=== PATIENT | female | born 1965 | race Caucasian/White ===

== ENCOUNTER 2020-01-03 08:55 | Outpatient (CLI) | payer BC, SELFPAY ==
--- NOTE | ~2020-01-03 | XR_ITS ---
EXAMINATION: XR fl inj hip RT for MR/CT DATE: 01/03/2020 10:23 INDICATION: Labral tear presenting with right hip pain TECHNIQUE: A time-out was performed to verify the patient's name, date of , and procedure to b e performed. The procedure including the risks, benefits, and alternatives was discussed with the pat ient. Risks discussed included bleeding and infection. The patient understood the risks and agreed to proceed. The skin overlying the right hip joint was prepped and draped in usual sterile fashion. A nesthetic was administered with 1% lidocaine subcutaneously. A 22 G needle was advanced under fluoro scopic guidance into the joint. Injection of 0.6 mL of Omnipaque 240 confirmed intra-articular posit ion of the needle. Subsequently, injectate consisting of 12 mL of 2:1:1 mixture of sterile saline:Om nipaque 240:1% lidocaine mixed 200:1 with 529 mg/mL Multihance gadolinium contrast was injected with intermittent fluoroscopic observation. The needle was removed and the entry site was cleaned and dres sed. There were no immediate complications. Fluoroscopy exposure time was 0.1 minutes. The total num jossue of images was 7. FINDINGS: Real-time fluoroscopy demonstrates the needle in the right hip joint. Patient's pain prior to procedure:5/10. Patient's pain following the procedure: 2/10. IMPRESSION: 1. Right hip injection of a dilute gadolinium contrast mixture for subdeltoid and prior arthrogram wh ich will be dictated separately. The contrast mixture included a small amount of lidocaine resulting in decrease in the patient's presenting pain. Reviewed, dictated and finalized at location A. IMPRESSION: 1. Right hip injection of a dilute gadolinium contrast mixture for subdeltoid a nd prior arthrogram which will be dictated separately. The contrast mixture inc luded a small amount of lidocaine resulting in decrease in the patient's presen ting pain.
--- NOTE | ~2020-01-03 | MR_ITS ---
EXAMINATION: MR hip RT w con DATE: 01/03/2020 11:17 INDICATION: Right hip pain. Labral tear. TECHNIQUE: Magnetic resonance (MR) arthrogram of the right hip was performed following intra-articula r gadolinium contrast injection and without intravenous contrast. Details of the hip joint injection have been dictated separately. Sequences included small field of view of the right hip with axial and sagittal T1-weighted FS SE and T2-weighted FS FSE and coronal T1-weighted SE and T2-weighted FS FSE . Additional T1-weighted FGRE images in a radial pattern oriented orthogonal to the acetabular rim we re obtained for evaluation of the labrum. COMPARISON: 08/04/2012 FINDINGS: Bones/labrum/cartilage: Alignment is normal. No fracture, avascular necrosis or pathologic marrow replacing process. There i s mild T2 hyperintense cystic change along the anterior right femoral neck where there appears to be decreased femoral head neck offset which can be seen in the setting of impingement. Mild osteoarthrit is at the right hip with anterosuperior and posterior inferior predominant partial thickness cartilag e loss without degenerative subarticular changes. There is a small shallow cleft consistent with bailey mination at the 10:30-11:30 position of the posterior superior chondro-labral junction which is incre ased slightly in length since the prior study. The remainder of the labrum appears normal. Moderate l ower lumbar facet osteoarthritis. Fluid: No loose bodies are evident synovitis at the contrast opacified right hip joint space. Physiologic am ount fluid at the left hip joint. Relatively symmetric mild increased fluid signal overlying the bila teral greater trochanters consistent with minimal trochanteric bursitis. No other abnormal fluid chase ections. Soft tissues: Normal and symmetric muscle bulk and signal in the pelvis and visualized proximal thighs. The bilater al iliopsoas, gluteal and proximal hamstring tendons are normal. Limited evaluation of visceral organ s of the pelvis is unremarkable. No pathologically enlarged pelvic/inguinal lymphadenopathy. IMPRESSION: 1. Mild right hip osteoarthritis with delaminating tear at the posterior superior chondral labral int erface. Labrum appears otherwise normal. 2. Decreased offset with chronic mild cystic change at the anterosuperior femoral head/neck offset wh ich can be seen with cam-type femoral acetabular impingement. 3. Minimal bilateral trochanteric bursitis. Reviewed, dictated and finalized at location A. IMPRESSION: 1. Mild right hip osteoarthritis with delaminating tear at the posterior superi or chondral labral interface. Labrum appears otherwise normal. 2. Decreased offset with chronic mild cystic change at the anterosuperior femor al head/neck offset which can be seen with cam-type femoral acetabular impingem ent. 3. Minimal bilateral trochanteric bursitis.
== END 2020-01-03 08:56 | disposition home or self-care (01) ==
PROVIDERS: PCP Family Medicine Adolescent Medicine; Visit Provider Orthopaedic Surgery
DX: M17.11 Unilateral primary osteoarthritis, right knee (principal); M70.62 Trochanteric bursitis, left hip; M70.61 Trochanteric bursitis, right hip
CPT/HCPCS: 20610; 73722; 77002; A9577; Q9966

== ENCOUNTER 2021-01-17 10:58 | Outpatient (CLI) | payer BC, SELFPAY ==
--- NOTE | ~2021-01-17 | XR_ITS ---
EXAMINATION: XR thoracic spine 3V EXAM DATE: 01/17/2021 11:43 INDICATION: Initial encounter following injury, with pain of the thoracic and lumbar spine. TECHNIQUE: Frontal and lateral projections of the thoracic spine as well as lateral swimmers projecti on of the upper thoracic spine for interpretation. There is no prior study for comparison. FINDINGS: There are no acute fractures identified. The vertebral bodies are aligned in the AP dime nsion. Vertebral body and disc heights are well-maintained. Paraspinal soft tissue is unremarkable. IMPRESSION: Unremarkable XR thoracic spine 3V exam. Reviewed, dictated and finalized at location A.
--- NOTE | ~2021-01-17 | XR_ITS ---
EXAMINATION: XR lumbar spine 2-3V EXAM DATE: 01/17/2021 11:43 INDICATION: Mid back pain after fall. Initial encounter. TECHNIQUE: Lumber spine frontal, lateral, lateral L5-S1 projections for interpretation. Comparison is made to prior examination from 07/26/2012. FINDINGS: Mild to moderate lower lumbar facet arthropathy. The vertebral bodies are aligned in the A P dimension. Vertebral body and disc heights are well-maintained. There are no acute fractures identi fied. Sacrum, sacroiliac joints, sacral arcuate lines are intact. Paraspinal soft tissue is unremarka ble. IMPRESSION: Mild to moderate lower lumbar facet arthropathy. No acute findings. Reviewed, dictated and finalized at location A. IMPRESSION: Mild to moderate lower lumbar facet arthropathy. No acute findings .
== END 2021-01-17 10:59 ==
PROVIDERS: PCP Family Medicine Adolescent Medicine; Visit Provider Physician Assistant
DX: M54.5 Low back pain (principal); M54.6 Pain in thoracic spine
CPT/HCPCS: 72072; 72100

== ENCOUNTER → 2022-03-21 15:29 | Outpatient (CLI) | payer BC, SELFPAY ==
--- NOTE | ~2022-03-21 | MR_ITS ---
EXAMINATION: MR lumbar spine wo con DATE: 03/21/2022 16:04 INDICATION: Low back pain. TECHNIQUE: Magnetic resonance imaging (MRI) of the lumbar spine was performed without intravenous con trast. Sequences included sagittal T2-weighted FSE, sagittal T2-weighted FS FSE, sagittal T1-weighted FSE, and axial T2-weighted FSE. COMPARISON: Lumbar spine radiographs 01/17/2021 FINDINGS: There is 3 mm anterolisthesis of L4 on L5. Vertebral body heights are normal. There is mild ly decreased disc height at L4-L5. The distal spinal cord signal intensity is normal. The conus medul nakul is at T12-L1. The following disc levels are specifically discussed: L1-L2: The disc does not extend beyond the endplate margin. There is mild bilateral facet joint osteo arthritis. There is no neural foraminal stenosis. There is no central canal stenosis. L2-L3: The disc does not extend beyond the endplate margin. There is mild bilateral facet joint osteo arthritis. There is no neural foraminal stenosis. There is no central canal stenosis. L3-L4: The disc does not extend beyond the endplate margin. There is mild bilateral facet joint osteo arthritis. There is no neural foraminal stenosis. There is no central canal stenosis. L4-L5: The disc is bulging and has an annular fissure. There is severe bilateral facet joint osteoart hritis. There is a 12 x 6 x 7 mm synovial cyst arising from left facet joint with mass effect on the left L5 nerve root in left lateral recess. There is mild bilateral neural foraminal stenosis. There i s moderate central canal stenosis. There is severe stenosis of left lateral recess. L5-S1: The disc does not extend beyond the endplate margin. There is mild bilateral facet joint osteo arthritis. There is no neural foraminal stenosis. There is no central canal stenosis. IMPRESSION: 1. Spondylosis at L4-L5 where a synovial cyst and a bulge exert mass effect on the left L5 nerve root . Reviewed, dictated and finalized at location A. IMPRESSION: 1. Spondylosis at L4-L5 where a synovial cyst and a bulge exert mass effect on the left L5 nerve root.
== END ==
PROVIDERS: PCP Family Medicine Adolescent Medicine; Visit Provider Physician Assistant
DX: R20.2 Paresthesia of skin (principal); M47.896 Other spondylosis, lumbar region
CPT/HCPCS: 72148

== ENCOUNTER 2024-08-05 14:50 | Outpatient (CLI) | payer BC, SELFPAY ==
--- NOTE | ~2024-08-05 | XR_ITS ---
CHEST RADIOGRAPH, PA AND LATERAL CLINICAL HISTORY: folllow up for 3mm nodule in right midlung in 12/05 . COMPARISON: None available TECHNIQUE: PA and lateral views of the chest. FINDINGS The cardiomediastinal silhouette is unremarkable. A 3 x 6 mm nodule is identified within the midportion of the right lung. The remainder of the lungs are clear Loss of the inferior cortex is identified within the posterior second right rib. Remaining visualized osseous structures and soft tissues are otherwise unremarkable. IMPRESSION: Loss of the inferior cortex within the posterior second right rib for which cross-sectional imaging ( noncontrast enhanced CT examination of the chest) is recommended for further evaluation. Reviewed, dictated and finalized at location A. IMPRESSION: Loss of the inferior cortex within the posterior second right rib for which crop supervisor ss-sectional imaging (noncontrast enhanced CT examination of the chest) is kyle mmended for further evaluation.
== END 2024-08-05 14:51 | disposition home or self-care (01) ==
PROVIDERS: PCP Family Medicine Adolescent Medicine; Visit Provider Family Medicine Adolescent Medicine
DX: R91.1 Solitary pulmonary nodule (principal)
CPT/HCPCS: 71046

== ENCOUNTER 2024-08-23 08:10 | Outpatient (CLI) | payer BC, SELFPAY ==
--- NOTE | ~2024-08-23 | CT_ITS ---
EXAMINATION:CT diagnostic chest wo con DATE: 08/23/2024 08:34 INDICATION: Right lung nodule. Right second rib lytic lesion on chest radiograph. TECHNIQUE: Computed tomography (CT) of the chest was performed without intravenous contrast. Automate d exposure control and iterative reconstruction technique were employed. The dose-length product (DLP ) was 176.96 mGy-cm. COMPARISON: None. FINDINGS: There is mild scarring at the lung apices. There is mild atelectasis bilaterally. A calcifi ed right lung nodule and calcified right hilar and mediastinal lymph nodes are consistent with old gr anulomatous disease. There is a pneumatocele in right upper lobe. There is a 12 mm nodule in right mi ddle lobe. No pleural effusion. The heart size is normal. No pericardial effusion. There is a 1.6 cm mass in left hepatic lobe. There are changes of left mastectomy. There is mild thoracic spondylosis. IMPRESSION: 1. 12 mm right middle lobe pulmonary nodule, which may be infection, primary bronchogenic carcinoma, or metastatic disease. Noncontrast low-dose chest CT is recommended in 1-3 months. 2. 1.6 cm liver mass, which may be benign or malignant. Abdomen MRI without and with contrast is kyle mmended. 3. Normal right second rib. Reviewed, dictated and finalized at location A. E TENDER IMPRESSION: 1. 12 mm right middle lobe pulmonary nodule, which may be infection, primary br onchogenic carcinoma, or metastatic disease. Noncontrast low-dose chest CT is r ecommended in 1-3 months. 2. 1.6 cm liver mass, which may be benign or malignant. Abdomen MRI without and with contrast is recommended. 3. Normal right second rib.
== END 2024-08-23 08:11 | disposition home or self-care (01) ==
LOC: GOSHIMG 08:11
PROVIDERS: PCP Family Medicine Adolescent Medicine; Visit Provider Family Medicine Adolescent Medicine
DX: R91.8 Other nonspecific abnormal finding of lung field (principal); R91.1 Solitary pulmonary nodule
CPT/HCPCS: 71250

== ENCOUNTER 2024-09-15 06:33 | Outpatient (CLI) | payer BC, SELFPAY ==
--- NOTE | ~2024-09-15 | MR_ITS ---
EXAMINATION: MR abdomen wo/w con DATE: 09/15/2024 07:22 INDICATION: Hepatomegaly, not elsewhere classified. Liver mass. TECHNIQUE: Magnetic resonance imaging (MRI) of the abdomen was performed without and with 15 mL Multi Fernie intravenous contrast. COMPARISON: Chest CT 08/23/2024 FINDINGS: There is a 13 mm mass in left hepatic lobe with interrupted peripheral puddling of contrast, consiste nt with a hemangioma. There is a 12 mm hyperenhancing mass in right hepatic lobe without washout. The re is a 4 mm hyperenhancing mass in right hepatic lobe. There is a 7 mm hyperenhancing mass right hep atic lobe. The gallbladder is normal in size. The spleen, pancreas, adrenal glands, and left kidney a re normal. There are cysts in right kidney measuring up to 14 mm. There are no dilated loops of bowel . There are no pathologically enlarged lymph nodes. There is no free intraperitoneal fluid. IMPRESSION: 1. 13 mm liver hemangioma correlating with the chest CT other mildly. 2. Three hyperenhancing liver masses measuring up to 12 mm. In the absence of known malignancy or chr onic liver disease, these findings are likely hemangiomas and/or focal nodular hyperplasia. Reviewed, dictated and finalized at location A. HEL KEEPER IMPRESSION: 1. 13 mm liver hemangioma correlating with the chest CT other mildly. 2. Three hyperenhancing liver masses measuring up to 12 mm. In the absence of k nown malignancy or chronic liver disease, these findings are likely hemangiomas and/or focal nodular hyperplasia.
== END 2024-09-15 06:34 | disposition home or self-care (01) ==
PROVIDERS: PCP Family Medicine Adolescent Medicine; Visit Provider Family Medicine Adolescent Medicine
DX: R16.0 Hepatomegaly, not elsewhere classified (principal)
CPT/HCPCS: 74183; A9577

== ENCOUNTER 2024-12-13 08:07 | Outpatient (CLI) | payer BC, SELFPAY | END 2024-12-13 08:08 | disposition home or self-care (01) | PROVIDERS: PCP Family Medicine Adolescent Medicine; Visit Provider Family Medicine Adolescent Medicine | DX: R91.8 Other nonspecific abnormal finding of lung field (principal) | CPT/HCPCS: 71250 ==

== ENCOUNTER 2025-01-10 13:24 | Outpatient (CLI) | payer BC, SELFPAY ==
--- NOTE | ~2025-01-10 | PE_ITS ---
EXAMINATION: PET skull to mid thigh DATE: 01/10/2025 15:27 INDICATION: Lung nodule TECHNIQUE: Blood glucose level was 88 mg/dL. 11.312 mCi of 18-fluorodeoxyglucose (18-FDG) was adminis tered i.v. Low dose computed tomography (CT) images were acquired from the base of the brain to the p roximal thighs for attenuation correction and anatomic localization. Positron emission tomography (PE T) images were acquired in the same distribution beginning 58 minutes after injection. Images includi ng fused PET/CT images were reconstructed in axial, coronal, and sagittal planes. Automated exposure control technique was employed. The dose-length product was 718.87mGy-cm. COMPARISON: Chest CT dated 12/13/2024 and MR dated 09/15/2024 FINDINGS: Head/neck: There is symmetric increased activity in the oral cavity, tonsils, submandibular glands laryngeal mus cles and ocular muscles without CT correlate, likely physiologic. No pathologically enlarged cervical lymphadenopathy or suspicious foci of increased FDG uptake in the visualized head or neck. Chest: Mild emphysema. Calcified right middle lobe nodule and calcified mediastinal lymph nodes consistent w ith old granulomatous disease. 1.4 x 0.9 cm at the posterior medial right middle lobe which without a bnormal FDG uptake with corresponding measurements of 1.5 x 1[address] dated 08/23/2024. No other p ulmonary nodules, pneumonia or pleural effusion. Heart size is normal. No pericardial effusion. Thora cic aorta is normal in caliber. No pathologically enlarged or FDG avid thoracic lymphadenopathy. Stat us post left mastectomy. Abdomen/pelvis/proximal thighs: Physiologic renal accumulation and excretion of FDG activity in the kidneys, bladder and along portio ns of ureters. Normal degree and heterogenous pattern of increased uptake throughout the liver withou t radiologic correlate or dominant FDG avid lesion. No abnormal uptake associated with a low-attenuat ion 1.3 cm hemangioma in segment IVb of the liver with characteristic enhancement pattern evident on prior MRI. The gallbladder, pancreas, spleen and bilateral adrenal glands are normal. Mild uptake sca ttered throughout the bowels without radiologic correlate, also likely physiologic. Normal appendix. Mild increased uptake overlying the bilateral greater trochanters consistent with trochanteric bursit is. No other abnormal foci of increased FDG uptake or pathologically enlarged lymphadenopathy in the abdomen, pelvis or proximal thighs. Musculoskeletal: No suspicious lytic, blastic or abnormally FDG avid bone lesions. IMPRESSION: 1. No FDG activity associated with an unchanged 1.4 x 0.9 cm right middle lobe nodule. While reassuri ng would recommend additional 6 month follow-up low-dose noncontrast chest CT. No other FDG avid lesi ons suspicious for primary malignancy or metastatic disease. Reviewed, dictated and finalized at location A. IMPRESSION: 1. No FDG activity associated with an unchanged 1.4 x 0.9 cm right middle lobe nodule. While reassuring would recommend additional 6 month follow-up low-dose noncontrast chest CT. No other FDG avid lesions suspicious for primary malignan cy or metastatic disease.
[2025-01-10 13:55] LABS: Glucose Point of Care 88 mg/dl (65-105)
--- OUTSIDE RECORDS SUMMARY | 2025-01-10 14:32 | XMS_ITS | Clinical Summary ---
Author Organization [facility] Address [address] [place] [address] Care Team Providers Care Ingredient Scaler Name Role Phone Nasim Dillard MD Primary Care Prov ider Allergies No known active allergies Medications HYDROcodone-alejandro taminophen (NORCO) 5-325 mg per tabletIndicatio ns:Pain 0 8 Active ibuprofen (ADVIL,MOTRIN) 600 mg tablet Take 1 tablet (600 mg total) by mouth as needed 0 8 Active venlafaxine XR (EFFEXOR-XR) 75 mg 24 hr capsule Take 1 capsule (75 mg total) by mouth daily 0 Active fluticasone propionate (FLONASE) 50 mcg/actuation nasal sprayIndication s:Allergic Rhinitis Administer 2 sprays into each nostril daily 18.2 mL 2 3 Active levocetirizine (XYZAL) 5 mg tablet Take 1 tablet (5 mg total) by mouth daily 30 tablet 3 3 Active propranoloL (INDERAL) 40 mg tablet Take 1 tablet (40 mg total) by mouth as needed Active pantoprazole DR (PROTONIX) 40 mg EC tablet Take 1 tablet (40 mg total) by mouth 2 (two) times a day before breakfast and dinner 60 tablet 3 4 Active Active Problems Problem Noted Date Diagnosed Date Laryngopharyngeal reflux (LPR) 02/02/2024 Chronic pansinusitis 02/02/2024 Nasal valve stenosis 06/16/2023 Hypertrophy of both inferior nasal turbinates Deviated nasal septum 06/16/2023 Nasal obstruction 06/16/2023 Trigger finger of right thumb 02/23/2020 Arthritis of carpometacarpal (CMC) joint of righ t thumb 09/29/2019 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 ([facility]) [address] [place], [place] [id number] Discharge Disposition: Discharge to home or self care from Last 3 Months Immunizations Immunization Administration Dates Next Due Hep B Vaccine 05/20/2016,11/06/2015 Influenza, Quadrivalent, Split, Intramuscular Influenza, Quadrivalent, Spl it, Preservative Free, Intramuscular 09/03/2019 ZOSTER Recombinant 12/29/2018 Surgical History Surgery Date Site/Laterality Comments MASTECTOMY 10/12/2001 - 10/11/2002 Left VEIN LIGATION AND STRIPPING Left greater saphenous removed for varicose vein BREAST RECONSTRUCTION attempted with tissue ship construction teacher and then removed. --> reconstruction failed HAND SURGERY thumb surgery TISSUE HEALTH OCCUPATIONS TEACHER REMOVAL THUMB SURGERY 10/12/2020 - 10/11/2021 Right bone removed from civic joint Medical History Medical History Date Comments Arthritis Heart murmur pt. denies chest pain or palpitations. Anemia no meds Cancer (HCC) 03/2002 Ductal carcinoma in situ (DCIS) left breast-->surgery. Denies chemo or radiation. No recurrence PONV (postoperative nausea and vomiting) Delayed emergence from general anesthesia slow to wake Post-menopausal Osteoarthritis Nasal obstruction Right nostril Nasal fracture x 2 Toxic shock (HCC) History of chemotherapy Family History Medical History Relation Name Comments Hypertension Father Cancer Mother Hypertension Mother Relation Name Status Comments Father Mother Social History Tobacco Use Types Packs/Day Years Used Date Smoking Tobacco: Never Smokeless Tobacco: Never Tobacco Cessation:Counseling Given: No Alcohol Use Standard Drinks/Week Comments Yes 0 (1 standard drink = 0.6 oz pur e alcohol) 1x/month AUDIT-C Answer Date Recorded Q1: How often do you have a drink containing alc ohol? 2-4 times a month 06/16/2023 Q2: How many drinks containi ng alcohol do you have on a typical day when you are drinking? 1 or 2 06/16/2023 Q3: How often do you have si x or more drinks on one occasion? 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 Not on file Not on file Obstetrics History Last Filed Vital Signs Vital Sign Reading Time Taken Comments Blood Pressure 152/91 11/04/2022 10:16 AM HADOOP SOFTWARE ENGINEER Pulse 76 11/04/2022 10:16 AM HADOOP SOFTWARE ENGINEER Temperature 36.7 C (98.1 F) 02/02/2024 9:50 AM CDT Respiratory Rate 20 06/16/2023 3:07 PM CDT Oxygen Saturation 98% 11/30/2019 1:10 PM HADOOP SOFTWARE ENGINEER Inhaled Oxygen Concentration - - Weight 71.7 kg (158 lb) 02/02/2024 9:50 AM CDT Height 172.7 cm (5' 8 ) 02/02/2024 9:50 AM CDT Body Mass Index 24.02 02/02/2024 9:50 AM CDT Plan of Treatment Health Maintenance Due Date Last Done Comments Cervical Cancer Screening 1965 Colon Cancer Screening-Colonoscopy 1963 Depression Screening 1963 Hepatitis C Screening 1963 DTaP/Tdap/Td Vaccine (1 - Tdap) 1974 Regular Well Visit/Exam 18-64 1981 Zoster Vaccine (2 of 2) 02/23/2019 12/29/2018 Influenza Vaccine (#1) 2024 09/03/2019, 2018 Breast Cancer Screening-Mammogram 06/09/2025 06/09/2024, 06/08/2023, 06/05/2022, Additional history exists Hepatitis B Screening Completed 05/20/2016, 016 Pneumococcal vaccine <65 Aged Out No longer eligible based on patient's age to complete this topic Medical Devices Implanted Type Area Documentation Nurse Device Identifier Shelf Expiration Date Model / Serial / Lot [employer] [id number]-8978-[id number] Internalbrace Kit Hand Wrist Set Implant Ligament Augmentation - [id number] Implanted:Qty: 1 on 11/30/2019 by Jamie Alvares MD at [facility] Right: Wrist [employer] 09/10/2024 AR-8978-[id number] / / [id number] Procedures Procedure Name Priority Date/Time Associated Diagnosis Comments CT BODY OUTSIDE REFERENCE Routine 12/26/2024 9:10 AM CDT SCREENING MAMMOGRAM RIGHT W VU UNILATERAL ONLY Schedule Routine, Read Routine (OP Routine) 06/09/2024 10:33 AM CDT Screening mammogram, encounter for from Last 3 Months or Most Recently Relevant to Health Maintenance Results * CT Body Outside Reference (12/26/2024 9:10 AM CDT) Impressions [facility] - 12/26/2024 9:10 AM CDT These images are for Reference purposes only and have not been reviewed by [facility]iology. There will be no report generated by a [facility] Radiologist. Narrative [facility] - 12/26/2024 9:10 AM CDT EXAMINATION: Images For Reference Purposes Only us Nasim Dillard MD IMG CT PROCEDURES Final Result [facility] * Screening Mammogram Right W Vu Unilateral Only (06/09/2024 10:33 AM CDT) Anatomical Region Laterality Modality Breast Right Mammography Narrative 06/10/2024 10:45 AM CDT Mammogram Technique: Right Breast Digital Breast Tomosynthesis, Unilateral C-view 2D Screening mammogram. Views obtained: bilateral craniocaudal and bilateral mediolateral oblique. Computer Aided Detection was performed. Mammogram Findings: The present examination has been compared to prior imaging studies performed at [facility] on 05/30/2021, 06/05/2022 and 06/08/2023. There are scattered areas of fibroglandular density. There is no suspicious abnormality in the right breast. Patient status post contralateral mastectomy for personal history of breast cancer. Impression: There is no mammographic evidence of malignancy. Annual screening mammography is recommended. OVERALL FINAL ASSESSMENT: BI-RADS CATEGORY 1: Negative. Procedure Note Anita Duarte MD - 06/10/2024 Mammogram Technique: Right Breast Digital Breast Tomosynthesis, Unilateral C-view 2DScreening mammogram. Views obtained: bilateral craniocaudal and bilateral mediolateral oblique. Computer Aided Detection was performed. Mammogram Findings: The present examination has been compared to prior imaging studies performed at [facility] on 05/30/2021, 06/05/2022 and 06/08/2023. There are scattered areas of fibroglandular density. There is no suspicious abnormality in the right breast. Patient status post contralateral mastectomy for personal history ofbreast cancer. Impression: There is no mammographic evidence of malignancy. Annual screening mammography is recommended. OVERALL FINAL ASSESSMENT: BI-RADS CATEGORY 1: Negative. us Self Screening Mammogram IMG MAMMO PROCEDURES Fi nal Result from Last 3 Months or Most Recently Relevant to Health Maintenance Insurance [facility] [facility] [address] [address] Advance Directives For more information, please contact: [phone] * Full Code (Latest Code Status on File) Date Activated Date Inactivated Comments 11/30/2019 11:52 AM 11/30/2019 5:26 PM Care Teams Ingredient Scaler Relationship Specialty Start Date End Date Nasim Dillard MD [address] [place] [address] PCP - General 02/26/17
--- OUTSIDE RECORDS SUMMARY | 2025-01-10 14:32 | XMS_ITS | Clinical Summary ---
Author Organization [facility] Address [address] [place] [address] Care Team Providers Care Animal Control Specialist Name Role Phone None, Provider MD Primary Care Provider Unavaila ble Medications HYDROcodone-alejandro taminophen (NORCO) 5-325 MG tablet TAKE 1 TO 1 & 1/2 (ONE TO ONE & ONE-HALF) TABLETS BY MOUTH EVERY 4 HOURS NEEDED FOR PAIN 09/29/2023 Active ibuprofen (MOTRIN) 600 MG tablet Take 1 tablet (600 mg total) by mouth 3 (three) times daily. 04/27/2023 Active propranolol (INDERAL) 40 MG tablet TAKE 1 & 1/2 (ONE & ONE-HALF) TABLETS BY MOUTH EVERY 12 HOURS NEEDED FOR TREMORS Active traZODone (DESYREL) 50 MG tablet take 1 tablet by mouth every day at bedtime as needed for insomnia 10/25/2023 Active venlafaxine XR (EFFEXOR-XR) 75 MG 24 hr capsule Take 1 capsule (75 mg total) by mouth daily. 11/11/2023 Active famotidine (PEPCID) 20 MG tabletIndicatio ns:Bronchitis Take 1 tablet (20 mg total) by mouth 2 (two) times daily. 60 tablet 11/19/2023 Active methylPREDNISol one, FRANKO, (MEDROL DOSEPAK) 4 MG tabletIndicatio ns:Bronchitis 6 TABLETS ON DAY ONE, 5 TABLETS DAY TWO, 4 TABLETS DAY THREE, 3 TABLETS DAY FOUR, 2 TABLETS DAY FIVE, AND 1 TABLET DAY SIX 1 each 11/19/2023 Active Active Problems No known active problems Social History Tobacco Use Types Packs/Day Years Used Date Smoking Tobacco: Never Smokeless Tobacco: Never Tobacco Cessation:Counseling Given: No Alcohol Use Standard Drinks/Week Comments Not Currently 0 (1 standard drink = 0.6 oz pur e alcohol) PHQ-2 Answer Date Recorded Patient Health Questionnaire-2 Score 0 11/19/2023 Comments Unknown Sex and Gender Information Value Date Recorded Sex Assigned at Not on file Legal Sex Female 8:10 PM CDT Gender Identity Not on file Sexual Orientation Not on file Last Filed Vital Signs Vital Sign Reading Time Taken Comments Blood Pressure 152/86 11/19/2023 10:59 AM FRUIT FARMER Pulse 86 11/19/2023 11:03 AM FRUIT FARMER Temperature 37.1 C (98.8 F) 11/19/2023 10:53 AM FRUIT FARMER Respiratory Rate 18 11/19/2023 10:53 AM FRUIT FARMER Oxygen Saturation 99% 11/19/2023 10:53 AM FRUIT FARMER Inhaled Oxygen Concentration - - Weight 74.8 kg (165 lb) 11/19/2023 10:53 AM FRUIT FARMER Height 172.7 cm (5' 8 ) 11/19/2023 10:53 AM FRUIT FARMER Body Mass Index 25.09 11/19/2023 10:53 AM FRUIT FARMER Plan of Treatment Health Maintenance Due Date Last Done Comments Cervical Cancer Screening Pa p Smear (Age 30 to 64) Every 3 Years 1963 Colorectal Cancer Screening Colonoscopy (10 Years) 1963 Annual Physical 1966 Hepatitis C 1981 DTaP, Tdap and Td Vaccines ( 1 - Tdap) 1982 Cervical Cancer Screening Pa p with HPV Testing (Age 30 to 64) Every 5 Years 1993 Cervical Cancer Screening with HPV 1993 Mammogram Screening 2003 Zoster Vaccines (2 of 2) 02/23/2019 12/29/2018 COVID-19 Vaccine ( - 2023-2 5 season) 2024 PHQ-2 (Physician Pauma) 10/12/2024 11/19/2023 RSV Immunization or 60+ Years (1 - 1-dose 75+ series) 2038 Meningococcal B Vaccine Aged Out No l onger eligible based on patient's age to complete this topic Meningococcal Vaccine Aged Out No vanessa leann eligible based on patient's age to complete this topic Pneumococcal Vaccine: Pediat rics (0 to 5 Years) and At-Risk Patients (6 to 64 Years) Aged Out No longer eligi ble based on patient's age to complete this topic RSV Immunizations Under 20 Months Aged Out No longer eligible based on patient's age to complete this topic Insurance Care Teams Animal Control Specialist Relationship Specialty Start Date End Date None, Provider, PCP - General 01/14/21
--- OUTSIDE RECORDS SUMMARY | 2025-01-10 14:32 | XMS_ITS | Referral Summary ---
Author Organization [facility] Address [address] [place] [address] Care Team Providers Care Front Line Supervisor Name Role Phone Nasim Dillard MD Primary Care Prov ider Encounters Date Type Department Care Team Description 12/26/2024 9:10 AM CDT - 12/26/2024 11:59 PM CDT Hospital Encounter [facility] [address] [place] [id number] Discharge Disposition: Discharge to home or self care from Last 3 Months Allergies No known active allergies Medications HYDROcodone-alejandro [...] of wrist 2014 Right hip pain 08/25/2012 Immunizations Immunization Administration Dates Next Due Hep B Vaccine 05/20/2016,11/06/2015 Influenza, Quadrivalent, Split, Intramuscular Influenza, Quadrivalent, Spl it, Preservative Free, Intramuscular 09/03/2019 ZOSTER Recombinant 12/29/2018 Social History Tobacco Use Types Packs/Day Years [...] on file Legal Sex Female 3:31 AM FIBERGLASS TUBE MOLDER Gender Identity Not on file Sexual Orientation Straight 12/23/2019 8: 36 AM CDT 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 Not on file Not on file Not on file Last Filed Vital Signs Vital Sign Reading Time Taken Comments Blood Pressure 152/91 11/04/2022 10:16 AM FIBERGLASS TUBE MOLDER Pulse 76 11/04/2022 10:16 AM FIBERGLASS TUBE MOLDER Temperature 36.7 C (98.1 F) 02/02/2024 9:50 AM CDT Respiratory Rate 20 06/16/2023 3:07 PM CDT Oxygen Saturation 98% 11/30/2019 1:10 PM FIBERGLASS TUBE MOLDER Inhaled Oxygen Concentration - - Weight 71.7 kg (158 lb) 02/02/2024 9:50 AM CDT Height 172.7 cm (5' 8 ) 02/02/2024 9:50 AM CDT Body Mass Index 24.02 02/02/2024 9:50 AM CDT Plan of Treatment Not on file Medical Devices Implanted Type Area Library Supervisor Device Identifier Shelf Expiration Date Model / Serial / Lot [employer] [id number] Internalbrace Kit Hand Wrist Set Implant Ligament Augmentation - [id number] Implanted:Qty: 1 on 11/30/2019 by Jamie Alvares MD at [facility] Right: Wrist [employer] 09/10/2024 [id number] / / [id number] Procedures Procedure Name Priority Date/Time Associated Diagnosis Comments CT BODY OUTSIDE REFERENCE Routine 12/26/2024 9:10 AM CDT SCREENING MAMMOGRAM RIGHT W VU UNILATERAL ONLY Schedule Routine, Read Routine (OP Routine) 06/09/2024 10:33 AM CDT Screening mammogram, encounter for from Last 3 Months or Most Recently Relevant to Health Maintenance Results * CT Body Outside Reference (12/26/2024 9:10 AM CDT) Impressions [facility] - 12/26/2024 9:10 AM CDT These images are for Reference purposes only and have not been reviewed by [facility]. There will be no report generated by a [facility] Radiologist. Narrative [facility] - 12/26/2024 9:10 AM [...] compared to prior imaging studies performed at [facility] on 05/30/2021, 06/05/2022 and 06/08/2023. There are [...] compared to prior imaging studies performed at [facility] on 05/30/2021, 06/05/2022 and 06/08/2023. There are [...] Most Recently Relevant to Health Maintenance Insurance [facility] [place] Member Subscriber Plan / Payer ( fective 2017-Present) Name:Mary Escalante Relation to Subscriber:Self Name:Mary Escalante Payer ID:[id number] (NA) Type:BC OTHER Address: [address] [place] [id number] Advance Directives For more information, please contact: [phone] * Full Code (Latest Code Status on File) Date Activated Date Inactivated Comments 11/30/2019 11:52 AM 11/30/2019 5:26 PM Care Teams Front Line Supervisor Relationship Specialty Start Date End Date Nasim Dillard MD [address] [place] [address] PCP - General 02/26/17
--- OUTSIDE RECORDS SUMMARY | 2025-01-10 14:32 | XMS_ITS | Clinical Summary ---
Author Organization [facility] Address [address] [place] [address] Care Team Providers Care Ui Architect Name Role Phone Nasim Dillard MD Primary Care Provider + Source Comments WebEvents,non-owned Affiliates and Associated Physician Practices is amultiple site organization consisting of ambulatory clinics and hospital sitesin [place], [place], [place] and [place]. This disclosure is being madepursuant to the Care Everywhere program and may not contain all information available regarding this patient. Last updated 18.[facility] Allergies No known active allergies Medications * Be aware that medications may not be up to date on this document. Alwaysverify current medications with the patient. Medication Sig Dispensed Refills Start Date End Date Status HYDROcodone-acetaminop hen (Llano) 5-325 MG tablet Take 1 (one) tablet by mouth every 8 hours as needed Active ibuprofen (Motrin) 800 MG tablet Take 1 (one) tablet by mouth every 8 hours as needed for Pain or Fever 12/09/2023 Active traZODone (Desyrel) 50 MG tablet Take 1 (one) tablet by mouth once daily 10/25/2023 Active venlafaxine XR 24hr (Effexor XR) 75 MG capsule Take 1 (one) capsule by mouth once daily Active Active Problems No known active problems Immunizations Name Administration Dates Next Due HEP B VACCINE, ADULT 3 DOSE 05/20/2016, 6 INFLUENZA VACCINE, QUADR. (F LUZONE; FLULAVAL; FLUARIX; AFLURIA QUADRIVALENT; 6MO+), 0.5 ML (IIV4) 09/03/2019 Zoster Hzv Vacc Recombinant Inj Im 12/29/2018 Family History Medical History Relation Name Comments Arthritis - Rheumatoid Father High Blood Pressure Father Sickle Cell Anemia Father Arthritis - Rheumatoid Mother Cancer Mother High Blood Pressure Mother Parkinson's Disease Mother Relation Name Status Comments Father Mother Social History Tobacco Use Types Packs/Day Years Used Date Smoking Tobacco: Some Days Cigarettes Smokeless Tobacco: Current Chew Tobacco Cessation:Ready to Q uit: Not Asked Alcohol Use Standard Drinks/Week Comments Never 0 (1 standard drink = 0.6 oz pur e alcohol) Sex and Gender Information Value Date Recorded Sex Assigned at Not on file Gender Identity Not on file Sexual Orientation Not on file Last Filed Vital Signs Vital Sign Reading Time Taken Comments Blood Pressure 151/89 04/25/2024 1:33 PM CDT Pulse 74 04/25/2024 1:33 PM CDT Temperature - - Respiratory Rate - - Oxygen Saturation - - Inhaled Oxygen Concentration - - Weight 76 kg (167 lb 9.6 oz) 04/25/2024 1:33 PM CDT Height 172.7 cm (5' 8 ) 04/25/2024 1:33 PM CDT Body Mass Index 25.48 04/25/2024 1:33 PM CDT Plan of Treatment Health Maintenance Due Date Last Done Comments COLOGUARD (AGES 45-75) - COLON CA SCREENING 1963 COLON MONITORING 1963 COLONOSCOPY - COLON CA SCREENING 1963 CT COLONOGRAPHY - COLON CA SCREENING 1963 Colorectal Cancer Screening 1963 FIT - COLON CA SCREENING 1963 FLEX SIG - COLON CA SCREENING 1963 LIPID TESTING 1963 PAP SMEAR 1963 HIV SCREENING 1978 HEPATITIS C SCREENING 01/26/1981 DTAP/TDAP/TD VACCINES (1 - Tdap) 1982 PNEUMOCOCCAL VACCINE 50+ (1 of 2 - PCV) 1982 PNEUMOCOCCAL VACCINE (1 of 2 - PCV) 1982 HEPATITIS B VACCINE (3 of 3 - 19+ 3-dose series) 07/15/2016 05/20/2016, 11/06/2015 ZOSTER VACCINE (2 of 2) 02/23/2019 12/29/2018 SCREENING FOR DIABETES 04/25/2024 COVID-19 VACCINE (1 - season) 2024 INFLUENZA VACCINE (#1) 2024 09/03/2019 DEPRESSION SCREENING 10/12/2024 MAMMOGRAM 06/08/2025 06/08/2023, 05/13, 06/05/2022, Additional history exists Respiratory Syncytial Virus (RSV) Vaccine Pt: or over 60 yrs (1 - 1-dose 75+ series) 2038 HIB VACCINE Aged Out No longer eligi ble based on patient's age to complete this topic HPV VACCINE Aged Out No longer eligi ble based on patient's age to complete this topic MENINGOCOCCAL (Group B) VACCINE SHARED DECISION-MAKING Aged Out No longer eligible based on patient's age to complete this topic MENINGOCOCCAL GROUPS A/C/Y/W VACCINE Aged Out No longer eligible based on patient's age to complete this topic Care Teams Ui Architect Relationship Specialty Start Date End Date Nasim Dillard MD [address] [address] PCP - General 11/22/08
--- OUTSIDE RECORDS SUMMARY | 2025-01-10 14:32 | XMS_ITS | Clinical Summary ---
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 Gender Identity Not on file Sexual Orientation Not on file Plan of Treatment Health Maintenance Due Date Last Done Comments DTAP/TDAP/TD VACCINES (1 - Tdap) 1982 HPV/Cotest (21-29) 02/01/1984 PAP SMEAR 02/01/1984 CERVICAL CANCER SCREENING 1993 HPV/Cotest (30-65) 1993 PAP SMEAR 1993 BREAST CANCER SCREENING 2003 COLORECTAL SCREENING 02/01/2008 Colorectal Cancer Screening 02/01/2008 FIT-DNA Q 3 years 02/01/2008 FIT/FOBT Q 1 year 02/01/2008 Flex Sig/CT Colonography Q 5 years 02/01/2008 ZOSTER VACCINE (1 of 2) 2013 INFLUENZA VACCINE (#1) 2024 RSV VACCINE (60+ or ) (1 - 1-dose 75+ series) 2038 Insurance [facility] [id number]
--- OUTSIDE RECORDS SUMMARY | 2025-01-10 14:32 | XMS_ITS | Encounter Summary ---
Author Organization [facility] Address [address] [place] [address] Care Team Providers Care Equipment Service Associate Name Role Phone None, Provider Primary Care Provider Karina proctor Encounter Details Date Type Department Care Team (Late st Contact Info) Description 11/18/2023 Calendly Message Blume Distillation [facility] [email or web address] [address] [place] [address] [place], [facility] Provider Full Proxy Access Granted Social History Tobacco Use Types Packs/Day Years Used Date Smoking Tobacco: Never Assessed PHQ-2 Answer Date Recorded Patient Health Questionnaire-2 Score 0 11/19/2023 Comments Unknown Sex and Gender Information Value Date Recorded Sex Assigned at Not on file Legal Sex Female 8:10 PM CDT Gender Identity Not on file Sexual Orientation Not on file documented as of this encounter Plan of Treatment Not on file documented as of this encounter Visit Diagnoses Not on filedocumented in this encounter Care Teams Equipment Service Associate Relationship Specialty Start Date End Date None, ProviderMD PCP - General 01/14/21 documented as of this encounter
--- OUTSIDE RECORDS SUMMARY | 2025-01-10 14:32 | XMS_ITS | Encounter Summary ---
Author Organization [facility] Address [address] [place] [address] Care Team Providers Care Orthotic Practitioner Name Role Phone None, Provider Primary Care Provider Karina proctor Encounter Details Date Type Department Care Team (Late st Contact Info) Description 03/17/2024 [employer]ts Message Enc [facility] BUSINESS OFFICE [place], [facility] Provider Attention Needed Social History Tobacco Use Types Packs/Day Years Used Date Smoking Tobacco: Never Smokeless Tobacco: Never Alcohol Use Standard Drinks/Week Comments Not Currently [...] on filedocumented in this encounter Care Teams Orthotic Practitioner Relationship Specialty Start Date End Date None, Provider, PCP - General 01/14/21 documented as of this encounter
--- OUTSIDE RECORDS SUMMARY | 2025-01-10 14:32 | XMS_ITS | Encounter Summary ---
Author Organization [facility] Address [address] [place] [address] Care Team Providers Care Texturing Machine Fixer Name Role Phone Nasim Dillard MD Primary Care Provider + Encounter Details Date Type Department Care Team (Late st Contact Info) Description 08/08/2019 Lab Requisition [facility] [address] [place] [phone] Gifty Maher DO [address] [facility] [address] [place] [address] Social History Tobacco Use Types Packs/Day Years Used Date Smoking Tobacco: Never Assessed Sex and Gender Information Value Date Recorded Sex Assigned at Not on file Gender Identity Not on file Sexual Orientation Not on file documented as of this encounter Plan of Treatment Not on file documented as of this encounter Procedures Procedure Name Priority Date/Time Associated Diagnosis Comments DERMATOPATHOLOGY Routine 08/05/2019 12:0 0 AM CDT documented in this encounter Results * DERMATOPATHOLOGY (08/05/2019 12:00 AM CDT) Case Report Dermatopathology Report Case: [id number] Authorizing Provider: Gifty Maher DO Collected: 08/05/2019 12:00 AM Ordering Location: [facility] Received: 08/08/2019 12:00 PM Pathologist: Eliza Chawla MD Specimens: A) - Skin, abdomen B) - Skin, left buttocks 9 5:44 PM CDT DERMATOPATHOLOGY LABORATORY Final Diagnosis Specimen A. SKIN, abdomen: LENTIGINOUS MELANOCYTIC NEVUS, JUNCTIONAL TYPE, IRRITATED (JUNCTIONAL MELANOCYTIC NEVUS WITH ARCHITECTURAL DISORDER) (D22.5) Specimen B. SKIN, left buttocks: LENTIGINOUS MELANOCYTIC NEVUS, JUNCTIONAL TYPE, IRRITATED (JUNCTIONAL MELANOCYTIC NEVUS WITH ARCHITECTURAL DISORDER) (D22.5) 5:44 PM [facility] DERMATOPATHOLOGY LABORATORY Clinical History A: R/O nevus atypia. B: R/O atypical. 5:44 PM T DERMATOPATHOLOGY LABORATORY Gross Description Specimen A: Received is one formalin filled container labeled with the patient's name and designated abdomen. The specimen consists of a shave measuring [id number]. Jar 0. Specimen B: Received is one formalin filled container labeled with the patient's name and designated left buttocks. The specimen consists of a shave measuring [id number]. Jar 0. 5:44 PM [facility] DERMATOPATHOLOGY LABORATORY Microscopic Description Specimen A. SKIN, abdomen: This is a junctional nevus. There is melanin pigment in the stratum corneum. There is architectural disorder characterized by a lentiginous proliferation of melanocytes between irregular nests of cells along the dermal-epidermal junction. There is underlying fibroplasia of the papillary dermis. (Junctional Amarjit's Nevus or Junctional Dysplastic Nevus) Specimen B. SKIN, left buttocks: This is a junctional nevus. There is melanin pigment in the stratum corneum. There is architectural disorder characterized by a lentiginous proliferation of melanocytes between irregular nests of cells along the dermal-epidermal junction, highlighted by MART-1/Melan-A immunohistochemical staining. There is underlying fibroplasia of the papillary dermis. Original and deeper sections were reviewed. (Junctional Amarjit's Nevus or Junctional Dysplastic Nevus) 5:44 PM T DERMATOPATHOLOGY LABORATORY Disclaimer An external and internal positive and negative controls are appropriate for the histochemical, immunohistochemical and immunofluorescence stain(s) in this case (if any), except where stated explicitly. The performance characteristics of the stain(s) cited in this report were developed and its performance characteristic determined by the Dermatopathology Laboratory at [facility], directed by Dr. Rashida Chawla. These tests need not be, and therefore are not, approved by the [place] Food and Drug Administration. The tests are used for clinical purposes. Billing Codes Specimen Charges Stain Charges 59293 41107 1 1 89158 1 9 5:44 PM CDT DERMATOPATHOLOGY LABORATORY Embedded Images 9 5:44 PM CDT DERMATOPATHOLOGY LABORATORY Pathology/Cytology TISSUE SPECIMEN FROM SKIN / Unknown 08/05/2019 08/08/2019 12:00 PM CDT Miscellaneous samples (specimen) TISSUE SPECIMEN FROM SKIN / Unknown 08/05/2019 08/08/2019 12:00 PM CDT Gifty Maher DO LAB - PATHOLOGY/C YTOLOGY ORDERABLES DERMATOPATHOLOGY LABORATORY [facility] - Department of Dermatology [address] [place] [address], [address] Floor Lab [address] [phone] documented in this encounter Visit Diagnoses Not on filedocumented in this encounter Care Teams Texturing Machine Fixer Relationship Specialty Start Date End Date Nasim Dillard MD [address] [address] PCP - General 11/22/08 documented as of this encounter
== END 2025-01-10 13:25 | disposition home or self-care (01) ==
PROVIDERS: PCP Family Medicine Adolescent Medicine; Visit Provider Family Medicine Adolescent Medicine
DX: R91.8 Other nonspecific abnormal finding of lung field (principal); J43.9 Emphysema, unspecified
CPT/HCPCS: 78815; A9552

== ENCOUNTER 2025-04-06 07:55 | Outpatient (CLI) | payer BC, SELFPAY ==
--- NOTE | ~2025-04-06 | DEXA_ITS ---
Bone Density Report Name: SUSI LAGOS Age: 60 Sex: Female Ethnicity: White Date of : 1965 Indication: postmenopausal; screening for osteoporosis; parental hip fracture; cancer; Referring Provider: SHANNA BURGOS Study: Bone densitometry was performed. Exam Date: April 06, 2025 Accession number: [id number] Bone Density: Region BMD T-score Z-score Classification AP Spine(L1-L4) 1.062 0.1 1.7 Normal Femoral Neck (Left) 0.758 -0.8 0.6 Normal Total Hip (Left) 0.928 -0.1 1.0 Normal Femoral Neck (Right) 0.816 -0.3 1.1 Normal Total Hip (Right) 0.968 0.2 1.3 Normal Total Hip Mean 0.948 0.1 1.2 Normal World Health Organization criteria for BMD impression classify patients as: Normal (T-score at or above -1.0), Osteopenia (T-score between -1.0 and -2.5), or Osteoporosis (T-score at or below -2.5). 10-year Fracture Risk: FRAX not reported because: All T-scores for Spine Total, Hip Total, Femoral Neck at or above -1.0 Clinical Information Provided by Patient: Parent has had a hip fracture Has used the following medications: Vitamin D Has the following medical conditions: Cancer Patient maximum height was 68 Menopause Age: 48 No regular weight bearing exercise Drinks caffeinated beverages Onset of menses at age 10 Number of children 2 Impression: The patient has normal bone mass. The patient has risk factors, including: parental hip fracture. Discussion: BONE DENSITY IS ABOVE THE MINIMUM DESIRABLE LEVEL AT ALL SKELETAL SITES TESTED. This patient?s bone mineral density is above the minimum desirable level (T-score -1.0 or better) at all sites measured. The patient should follow a healthful lifestyle (good nutrition with adequate calcium and vitamin D, and appropriate weight-bearing exercise). Follow-Up: Consider repeating this study in 5 years or sooner if there is some new clinical indication. Reported by: SAMIA on 04/06/2025 8:33:00 AM. Reviewed, dictated and finalized at location A.
== END 2025-04-06 07:56 | disposition home or self-care (01) ==
LOC: ANHIMG 07:59
PROVIDERS: PCP Family Medicine Adolescent Medicine; Visit Provider Family Medicine Adolescent Medicine
DX: Z78.0 Asymptomatic menopausal state (principal)
CPT/HCPCS: 77080